=== PATIENT | male | born 1950 | race Caucasian/White ===

== ENCOUNTER 2017-11-25 10:04 | Emergency (ER) | payer MEDICARE, OTHER ==
[~2017-11-25] VITALS: Ht 177.8 cm; Wt 77.3 kg
[~2017-11-25 10:04] MED LIST: CHLO200T10 PO; DIVA500T2 PO; DOCU-119 PO; FOLIC ACID; GEMF600T3 PO; LASIX; LEVO88TA9 PO; LITH600C PO; LORA0.5T83 PO; OLAN5TAB2 PO; PANT40TA25 PO; PARO20TA24 PO; POTA25TA7 PO; SENN-34 PO; SIMV20TA6 PO
[2017-11-25] MEDS ORDERED: AUGM4005L PO (11:19)
[2017-11-25] MEDS ORDERED: ATOR20TA86 PO (11:19)
[2017-11-25] MEDS ORDERED: MIRT15 PO (11:19)
[2017-11-25] MEDS ORDERED: MEMA10TA11 PO (11:19)
[2017-11-25] MEDS ORDERED: TAMS0.4C32 PO (11:19)
[2017-11-25] MEDS ORDERED: FURO100P IV (11:19)
[2017-11-25] MEDS ORDERED: CefTRIAXone SODIUM 1 GM in DEXTROSE 5%-WATER 10 ML IV ONE (11:45)
[2017-11-25] MEDS ORDERED: FURO40 PO (11:51)
[2017-11-25 12:08] LABS: BASOPHILS % (AUTO) 1.9 % (0.0-2.0); EOSINOPHILS % (AUTO) 0.6 % (1.0-6.0); HEMATOCRIT 33.6 % (41-53); HEMOGLOBIN 11.6 g/dL (13.5-17.5); LYMPHOCYTES % (AUTO) 30.8 % (22.0-44.0); MEAN CORPUSCULAR HEMOGLOBIN 33.8 pg (26.0-34.0); MEAN CORPUSCULAR HGB CONC 34.5 G/dL (31.0-37.0); MEAN CORPUSCULAR VOLUME 98 fL (80-100); MONOCYTES # (AUTO) 0.8 K/uL (0.1-1.0); MONOCYTES % (AUTO) 12.5 % (2.0-9.0); NEUTROPHILS # (AUTO) 3.6 K/uL (1.8-7.7); NEUTROPHILS % (AUTO) 54.2 % (40.0-70.0); PLATELET COUNT (AUTO) 131 K/uL (150-450); RED BLOOD CELL COUNT(AUTO) 3.44 MIL/uL (4.50-5.90); RED CELL DISTRIBUTION WIDTH 13.2 % (11.5-14.5)
[2017-11-25 12:21] LABS: ANION GAP 5 mmol/L (8-16); CALCIUM, TOTAL 8.7 mg/dL (8.8-10.5); CARBON DIOXIDE 34 mmol/L (22-29); CHLORIDE 103 mmol/L (98-107); GLOMERULAR FILTR. RATE CALC > 60 mL/min (>60); GLUCOSE,RANDOM 76 mg/dL (70-110); POTASSIUM 4.4 mmol/L (3.5-5.1); SODIUM SERUM 142 mmol/L (136-145); UREA NITROGEN, BLOOD 18 mg/dL (7-18)
[2017-11-25 12:26] LABS: ALANINE AMINOTRANSFERASE 16 U/L (12-78); ALBUMIN 2.6 g/dL (3.4-5.0); ALKALINE PHOSPHATASE 86 U/L (46-116); ASPARTATE AMINOTRANSFERASE 20 U/L (15-37); BILIRUBIN,TOTAL 0.4 mg/dL (0.1-1.0); TOTAL PROTEIN, SERUM 7.4 g/dL (6.4-8.2)
[2017-11-25 13:24] VITALS: BP 127/83
[2017-11-25 13:41] LABS: CREATINE KINASE, TOTAL 109 U/L (39-308)
[2017-11-25 13:47] LABS: B-TYPE NATRIURETIC PEPTIDE 47 pg/mL (0-100)
[2017-11-25 14:03] LABS: CREATINE KINASE MB 3.1 ng/mL (0-5)
[2017-11-25] MEDS ORDERED: AMOX1TAB16 PO (18:08)
== END 2017-11-25 15:06 | disposition home or self-care (01) ==
LOC: EMS 10:05
DX: L03.116 Cellulitis of left lower limb (principal); L03.115 Cellulitis of right lower limb; R00.1 Bradycardia, unspecified; M19.90 Unspecified osteoarthritis, unspecified site
CPT/HCPCS: 36415; 71045; 80053; 82550; 82553; 83880; 84484; 85025; 93005; 93970; 96374; 99285; J0696; J7060